=== PATIENT | female | born 1975 | race Caucasian/White ===

== ENCOUNTER 2022-09-12 12:25 | Outpatient (CLI) | payer OTHER | END 2022-09-12 12:26 | disposition home or self-care (01) | LOC: CSHCT 12:25 | PROVIDERS: ATTEND Urology | DX: N30.10 Interstitial cystitis (chronic) without hematuria (principal); R19.03 Right lower quadrant abdominal swelling, mass and lump | CPT/HCPCS: 72197; 74178 ==